=== PATIENT | female | born 1930 | race Caucasian/White ===

== ENCOUNTER 2017-01-10 03:18 | Inpatient (IN) | payer OTHER, BC ==
[2017-01-10] MEDS ORDERED: ACETAMINOPHEN 325 MG TAB PO PRN (09:04)
--- NOTE | 2017-01-10 10:06 | GHP ---
DATE OF ADMISSION: 01/10/2017 CHIEF COMPLAINT: Fever and confusion. HISTORY OF PRESENT ILLNESS: This is an 86-year-old woman who initially presented to [facility] in the middle of the night last night. She had a significant workup there, was hypoten sive at one point, thus transferred to this facility for ICU level care. History is obtained through the patient as well as her daughter. She had a total knee replacement a bout 3 weeks ago. This was relatively uneventful. She is on Coumadin for atrial fibrillation, was off Coumadin. Her daughter does not believe that she was bridged with Lovenox. She is currently th erapeutic and has been for a few weeks. She has been feeling poorly for about 5 days. She saw her primary care physician 2 days prior to presentation who gave her a liter of IV fluid. That made her feel slightly better. She called her daughter last night, saying that she was "very sick". She co mplains mostly of some neck pain as well as a headache that has been present for about 1 day. She a lso had a fever at home. She was quite confused when her daughter first arrived at her house. She was also very globally weak. Seems as though she has been doing somewhat poorly since her knee surg shruthi, she has been ambulating. She has lost about 20 pounds since the surgery, however. At [facility], she had multiple tests run. She had a CBC which showed a white count of 15,000; head CT scan, which was negative for any acute abnormality; CT angio of the head, which was also negative. She had a CT of her abdomen and pelvis which was negative. Given her neck pain, a lumbar puncture w as performed which showed xanthochromia, some red blood cells but no significant white blood cells. Arthrodesis of her knee showed also red blood cells but no significant white blood cells or crystal s. She had an ESR which was 22. She was hypotensive, she was given 2 L of fluid to which her blood pressure responded. A central line was placed. She was given vancomycin as well as cefepime, then transferred to [facility]. She tells me she feels slightly better. She is still quite somnolent. PAST MEDICAL/SURGICAL HISTORY: 1. Chronic right-sided abdominal pain status post significant workup with no etiology identified. 2. Fibromyalgia on prednisone and Plaquenil. 3. Chronic steroid use of 5 mg of prednisone a day for about 30 years. 4. Osteoarthritis. 5. Diabetes on metformin. 6. Atrial fibrillation on chronic anticoagulation. PAST SURGICAL HISTORY: Bilateral TKA, the last about 3 weeks ago. MEDICATIONS: Please see medication reconciliation. ALLERGIES: Penicillin, codeine, sulfa and opiates. FAMILY HISTORY: Parents are . SOCIAL HISTORY: She lives 2 doors down from her daughter. She does not drink or smoke. REVIEW OF SYSTEMS: A 10-point review of systems is conducted and is negative except per HPI. PHYSICAL EXAM: VITAL SIGNS: Blood pressure is 130/38, heart rate is 79, respiration rate 23, satur ating 100% on 3 L, temperature 36.8. GENERAL: The patient is a pleasant female who appears quite s omnolent, lying in bed, also quite uncomfortable. HEENT: Shows her to be normocephalic, atraumatic . CARDIOVASCULAR: Regular rate and rhythm. No murmurs, rubs, or gallops. PULMONARY: Lungs clear to auscultation bilaterally. ABDOMINAL: Soft. She is tender to palpation in the right upper and lower quadrant. She has no mass or hepatosplenomegaly appreciated. SKIN: Shows no rash. : Excharlie m shows a Kirkpatrick in place. NEUROLOGIC: Shows her to be alert and oriented x3. She is somnolent. S he is moving all extremities. She has a nonfocal exam. PSYCHIATRIC: Shows normal mood and affect. EXTREMITIES: Her right lower extremity with 2 wounds, both surgical. She has mild darkening arou nd the inferior aspect of her right TKA incision, not warm, not significantly erythematous. She has a 2nd wound which is apparently intraoperative in the lower sanchez with no purulence or surrounding e rythema. LABS: As above. DATA: Chart thoroughly reviewed. Other data per HPI. IMPRESSION AND PLAN: This is an 86-year-old female who is transferred from [facility] for systemic infl ammatory response syndrome with unclear source. 1. Systemic inflammatory response syndrome: She has had significant workup at [facility] including lum bar puncture, knee arthrocentesis, CT abdomen and pelvis. She had blood cultures, urine cultures, C SF cultures, as well as synovial fluid culture sent. Those are pending. She was covered with vanco mycin and cefepime. I am also not finding any clear source. She did have xanthochromia in her lumb ar puncture though she had recently had an epidural. It would not be unreasonable to repeat a head CT scan at some point to further investigate. Given how poorly she looks, I will repeat all of her labs right now. I think it is reasonable to continue to cover her with vancomycin as well as Invanz (she has an allergy to penicillins). We will follow her cultures and see if any clear infection id entifies itself. 2. Chronic abdominal pain: She has had a very significant workup. Will not continue looking for e tiologies at this point. 3. Hypotension: Does not seem to be septic shock at this point. She has responded very well. Adr enal insufficiency is a consideration. She currently has a normal blood pressure with a systolic of 130. I will continue fluids, not give her stress dose steroids, follow very closely in the ICU. S he has a central line in place. 4. Recent right-sided total knee arthroplasty: I am not seeing any clear operative complications. She did also have a lower extremity Doppler which was negative 2 days ago. Does not appear to be i nfected clinically, but will follow synovial cultures. 5. Head and neck pain: She had xanthochromia on her lumbar puncture; however, she had recently had an epidural. Glucose was actually elevated on her CSF. No protein was sent apparently. Her red b lood cell count was 1270 with 3 whites. This was tube #1. 6. She had a negative flu test as well. 7. Code status is full. 8. VTE risk is low. She is therapeutically anticoagulated. /[id number]/MODL
[2017-01-10] MEDS: ERTAPENEM 1 GM in NS 100 ML IV SCH (10:14)
[2017-01-10 10:22] LABS: % IMMATURE GRANULYOCYTES 0.3 % (0.0-1.1); ABSOLUTE IMMATURE GRANULOCYTES 0.05 10^3/uL (0.00-0.10); ADD DIFF? NO; ADD MORPH? NO; ADD SCAN? NO; ATYPICAL LYMPHOCYTE FLAG 0 (0-99); FRAGMENT RBC FLAG 0 (0-99); HEMOGLOBIN 9.9 g/dL (12.6-16.3); LEFT SHIFT FLG 0 (0-99); LIPEMIA HEMOLYSIS FLAG 80 (0-99); MEAN CELL HEMOGLOBIN 28.9 pg (27.9-34.1); MEAN CELL HEMOGLOBIN CONCENTR. 30.9 g/dL (32.4-36.7); MEAN CELL VOLUME 93.6 fL (81.5-99.8); MEAN PLATELET VOLUME 9.7 fL (8.7-11.7); PLATELET CLUMPS FLAG 0 (0-99); PLATELET COUNT 168 10^3/uL (150-400); RED BLOOD CELL COUNT 3.42 10^6/uL (4.18-5.33)
[2017-01-10 10:44] LABS: ALANINE AMINOTRANSFERASE 23 IU/L (9-52); ALBUMIN 2.6 g/dL (3.5-5.0); ALKALINE PHOSPHATASE 45 IU/L (38-126); ANION GAP 4 mEq/L (8-16); ASPARTATE AMINOTRANSFERASE 17 IU/L (14-46); BILIRUBIN,TOTAL 0.7 mg/dL (0.1-1.4); CALCIUM 7.5 mg/dL (8.5-10.4); CARBON DIOXIDE 24 mEq/l (22-31); CHLORIDE 106 mEq/L (97-110); CREATININE 0.9 mg/dL (0.6-1.0); GLOMERULAR FILTRATION RATE 59; GLUCOSE 108 mg/dL (70-100); MAGNESIUM 1.6 mg/dL (1.6-2.3); SODIUM 134 mEq/L (134-144); TOTAL PROTEIN 5.3 g/dL (6.3-8.2)
[2017-01-10 10:55] LABS: TROPONIN I < 0.012 ng/mL (0-0.034)
[2017-01-10] MEDS: ONDANSETRON 4 MG/2 ML VIAL IVP PRN (11:00)
[2017-01-10 11:01] LABS: INR 3.38 (0.83-1.16); PROTIME(PATIENT) 34.7 SEC (12.0-15.0)
--- NOTE | 2017-01-10 11:23 | CPEKG ---
Heart Rate: 79 RR Interval: 759 P-R Interval: 176 QRSD Interval: 146 QT Interval: 400 QTC Interval: 459 P [place]: 0 QRS [place]: 268 T Wave [place]: 80 EKG Severity - ABNORMAL ECG - EKG Impression: VENTRICULAR-PACED URITHJane Electronically Signed By: Omar Castañeda 10-Jan-2017 12:16:39
[2017-01-10] MEDS: KETOROLAC 15 MG/1 ML SDV IVP PRN (11:35)
--- NOTE | 2017-01-10 14:16 | WOCRNPDOC ---
ALEX Advanced Assessment Note - Skin Integrity Problem, Advanced Assess Right Anterior Lower Leg Laceration Dressing Type: Mepilex Border (placed prior to admission) Dressing Description: Clean/Dry, Intact Exudate Amount: None Exudate Characteristic(s): None Integumentary Issue Intervention: Visualized Under Dressing Aundrea Wound Swelling: None Wound Bed Constitution: Healed Site Odor: None Site Measurement - Head-to-Toe Length X Width X Depth (cm): 3 cm l x 0.3 x 0 Skin Integrity Problem Comment: Site of laceration is closed, with scaly, new epithelium/scar tissue. Allevyn dressing is appropriately placed by chief of staff to protect site undernerath SCDs. Right Buttock Pressure Injury Dressing Type: Allevyn Life Dressing Description: Not Intact, Soiled Exudate Amount: None Integumentary Issue Intervention: Dressing Changed, Dressing Initialed & Dated Aundrea Wound Tissue: Erythema, Non-blanching, Thin Aundrea Wound Swelling: None Wound Bed Constitution: Smooth Tissue Wound Edges: Epithelizing, Attached Site Odor: None Site Measurement - Head-to-Toe Length X Width X Depth (cm): 2.3 x 0.3 x 0 ( ridged) Pressure Injury Present on Admit: Yes (per report of daughter) Skin Integrity Problem Comment: Evidence of a resurfacing pressure ulcer of undetermined, possibly full-thickness depth previous to present admission and assessment. Daughter reports that injury has been present and under care since "when she (patient) was at rehab." Site is covered w/new epithelium, with slightly rough texture, possibly tending toward cheloid scarring. Protected w/ skin prep and Allevyn sacrum dressing; JOSHUA Sidhu assisting.
[2017-01-10] MEDS ORDERED: DICLOFENAC SODIUM TP PRN (15:47)
[2017-01-10] MEDS ORDERED: SENNOSIDES/DOCUSATE SODIUM TAB PO PRN (15:47)
[2017-01-10] MEDS ORDERED: POLYETHYLENE GLYCOL 3350 17 GM PKT PO PRN (15:47)
[2017-01-10] MEDS: WARFARIN SODIUM 4 MG TAB PO SCH (16:12)
--- NOTE | 2017-01-10 20:02 | GCON ---
CRITICAL CARE CONSULT DATE OF CONSULTATION: 01/10/2017 HPI: The patient is an 86-year-old female, who underwent a right total knee arthroplasty in late [facility] or early December. According to records, the surgery itself was fairly uncomplicated. She tavares d issues with pain control, but that was managed easily, and she was discharged to [facility]. While she was there, she had sort of chronic complaints about dizziness and overall weakne ss and presented to the emergency room at [facility], where her surgery was done, on 01/08. At that [facility], she was afebrile. Her blood pressure was normal. They were not sure what was bothering her, but she did have a white blood cell count of 12.6 at the time. She was sent back to the rehab, returne d the following day feeling worse, and this time was found have a fever of 102.0 and a white blood c ell count now of 14.9. Her blood pressure was in the 70s after 2 L of fluid. This normalized after an additional fluid challenge. An arthrocentesis was performed by the emergency physician there, d id not show evidence of infection, just some blood. A lumbar puncture was also performed that showe d some xanthochromia, but the patient was on Coumadin at that time and only 3 white cells were ident ified, and these were primarily lymphocytes. Because of the blood pressure issue, she was transferr ed to [facility]. Subsequently, blood cultures were found to have gram-positive joon ci in pairs in 2/2 bottles. While here at [facility], her blood pressure has been somewhat labile, though never a systolic less than 90, and her lactate was normal. She has had very little intervention for blood pressure since she has been here. REVIEW OF SYSTEMS: Negative. PAST MEDICAL HISTORY: Includes: 1. Chronic abdominal pain of uncertain etiology. She has had an extensive workup for this. 2. Fibromyalgia. 3. Chronic prednisone therapy for that problem. 4. Degenerative joint disease. 5. Diabetes. 6. Atrial fibrillation. 7. Chronic anticoagulation. 8. Depression. 9. Hyperlipidemia. 10. Pneumonia in 2016. 11. Remote history of melanoma. 12. Episodes of ventricular tachycardia requiring a pacer placement. 13. Some notes suggest chronic kidney disease. Her creatinine is normal now. She may have had acu te kidney disease previously. 14. Anemia. PAST SURGICAL HISTORY: Includes: 1. Total knee arthroplasty most recently on the right and remotely on the left. 2. Laparoscopic cholecystectomy. 3. Appendectomy. 4. Multiple back surgeries, the last one in 2011. 5. Hysterectomy. 6. Cataract extractions. 7. Bladder suspension. 8. Remote tubal ligation. 9. Ankle fracture. 10. Pacemaker placement in the past. SOCIAL HISTORY: She is a nonsmoker. Rare alcohol. No IV drug use. FAMILY HISTORY: Noncontributory at this time. CURRENT MEDICATIONS: Include Tylenol, ertapenem, Plaquenil, Toradol, Zofran, oxycodone, MiraLAX, pr ednisone 5 mg daily, Senokot, vancomycin, and warfarin. ALLERGIES: Include penicillin and codeine and sulfa medications. PHYSICAL EXAMINATION: VITAL SIGNS: She has been afebrile here at [facility]. Blood pressure at the [place] t was 97/33, currently 118/96 without intervention with a heart rate of 79, 100% paced, oxygen satur ation 99% on 3 L with a respiratory rate of 19. GENERAL: She is a very pleasant woman, alert and o riented x3, and able to speak in full sentences without using accessory muscles for breathing. HEEN T: She complained of a hoarse voice, but I do not appreciate any stridor. Pupils equally round, re act to light. Nonicteric and noninjected. Mucous membranes are moist without erythema or exudate. NECK: Supple without adenopathy or jugular vein distention, and there were no abrasions on her nec k where she was having some tenderness and headache that she thought was a migraine earlier today. RESPIRATORY: Breath sounds were clear to auscultation bilaterally without wheezes or rales. HEART: Regular rate and rhythm without obvious murmurs. ABDOMEN: Soft, nontender, nondistended, without hepatosplenomegaly. EXTREMITIES: Showed mild edema distally on the right. I believe she has had an ultrasound ruling out DVT. She has an area of about 1 x 2 or 3 cm erythema at the distal portion of her incision that is warm to touch but not swollen or excessively tender. She has another lesio n at her distal right lower extremity where she says she was inadvertently cut with a scissors on a dressing change. That wound looks clean and dry without evidence of infection. There is no cyanosi s or clubbing on either leg. Her left leg looks perfectly fine. NEUROLOGICAL: Nonfocal, including cranial nerves and deep tendon reflexes. OBJECTIVE DATA: Includes a white count of 12.6 on 01/08 and 14.9 and 01/09 prior to transfer to [facility] . Here her white count was 14.8, hematocrit is 32, platelets of 168. INR was 3.38. Sodium was 134 , potassium 4.0, chloride 108, bicarb 24, anion gap was only 4, BUN 16, creatinine 0.9. LFTs were n ormal. Lipase was 155. TSH was 0.74. She had a head CT and abdominal and pelvic CT scan that were normal. I have already cited the blood cultures as well as a joint aspirate which showed 1750 whit e cells, 70% neutrophils, but no organisms on Gram stain. CSF was benign as described as above. ASSESSMENT/PLAN: 1. Severe sepsis with hypotension but no end-organ damage. She appeared to respond well to fluid. She is on appropriate antibiotics at this time. I suspect that the joint is probably clean and wit hout an infection. The source may be cellulitis at the incision site. We will keep track of this a nd monitor for any progress. I think it is appropriate to keep her in the intensive care unit [facility] her blood pressure at least overnight to see that this stays normal. 2. Chronic prednisone. She is relatively stable at this time. She may need stress dose steroids f or this problem. This certainly increases her risk for infection as described above. 3. Atrial fibrillation. This has been obviated by the 100% pacemaker. 4. Diabetes. Certainly, efforts are being made to keep her blood sugar under good control at this time. 5. She is otherwise stable. A total of about 35 minutes of critical care time was required for this patient. /[id number]/MODL
[2017-01-10] MEDS: VANCOMYCIN 750 MG in D5W 150 ML IV SCH (23:57)
[2017-01-11] MEDS: KETOROLAC 15 MG/1 ML SDV IVP PRN ×2 (00:28→17:27)
[2017-01-11] MEDS: ONDANSETRON 4 MG/2 ML VIAL IVP PRN (00:28)
[2017-01-11 05:06] LABS: % IMMATURE GRANULYOCYTES 0.2 % (0.0-1.1); ABSOLUTE IMMATURE GRANULOCYTES 0.02 10^3/uL (0.00-0.10); ADD DIFF? NO; ADD MORPH? NO; ADD SCAN? NO; ATYPICAL LYMPHOCYTE FLAG 0 (0-99); FRAGMENT RBC FLAG 0 (0-99); HEMATOCRIT 29.9 % (38.0-47.0); HEMOGLOBIN 9.1 g/dL (12.6-16.3); LEFT SHIFT FLG 0 (0-99); LIPEMIA HEMOLYSIS FLAG 80 (0-99); MEAN CELL HEMOGLOBIN 28.3 pg (27.9-34.1); MEAN CELL HEMOGLOBIN CONCENTR. 30.4 g/dL (32.4-36.7); MEAN CELL VOLUME 92.9 fL (81.5-99.8); PLATELET CLUMPS FLAG 10 (0-99); PLATELET COUNT 150 10^3/uL (150-400); RED BLOOD CELL COUNT 3.22 10^6/uL (4.18-5.33); RED CELL DISTRIBUTION WIDTH 14.2 % (11.5-15.2)
[2017-01-11 05:26] LABS: ALANINE AMINOTRANSFERASE 29 IU/L (9-52); ALBUMIN 2.4 g/dL (3.5-5.0); ALKALINE PHOSPHATASE 42 IU/L (38-126); ANION GAP 5 mEq/L (8-16); ASPARTATE AMINOTRANSFERASE 15 IU/L (14-46); BILIRUBIN,TOTAL 0.5 mg/dL (0.1-1.4); CARBON DIOXIDE 24 mEq/l (22-31); CHLORIDE 108 mEq/L (97-110); CREATININE 0.8 mg/dL (0.6-1.0); GLOMERULAR FILTRATION RATE > 60; GLUCOSE 72 mg/dL (70-100); POTASSIUM 3.9 mEq/L (3.5-5.2); SODIUM 137 mEq/L (134-144); TOTAL PROTEIN 5.1 g/dL (6.3-8.2)
[2017-01-11 05:30] LABS: INR 4.06 (0.83-1.16); PROTIME(PATIENT) 40.2 SEC (12.0-15.0)
[2017-01-11] MEDS: predniSONE 5 MG TAB PO SCH (09:49)
[2017-01-11] MEDS: HYDROXYCHLOROQUINE SULFATE 200 MG TAB PO SCH (09:49)
[2017-01-11] MEDS: ERTAPENEM 1 GM in NS 100 ML IV SCH (09:49)
[2017-01-11] MEDS: ONDANSETRON DISINTEGRATING 4 MG TAB PO PRN ×2 (10:46→15:22)
--- NOTE | 2017-01-11 11:31 | HOSPPROG ---
Hospitalist Progress Note Assessment/Plan: # GPC pairs bacteremia (Aroldoa) - maybe enterococcus - cont vanc - repeat BCx - check echo - ID consult # recent R TKA - synovial fluid NGTD from [facility] # LOZA/neck pain - CSF NGTD # a-fib, elevated INR - hold warfarin today - rate controlled # arthritis - plaquenil, prednisone # chronic steroid use - no evidence of AI ## high risk with bacteremia, age Subjective: Blood cultures from [facility] grew gram positives; feels much better overall today Objective: Vital Signs Temp Pulse Resp BP Pulse Ox 36.3 C 79 18 118/59 L 93 01/11/17 11:06 01/11/17 11:06 01/11/17 11:06 01/11/17 11:06 01/11/17 11:06 Laboratory Results 01/11/17 04:35 01/11/17 04:35 01/10/17 01/11/17 01/12/17 05:59 05:59 05:59 Intake Total 2738 Output Total 1200 50 Balance 1538 -50 PT 40.2 SEC (12.0-15.0) H 01/11/17 04:35 INR 4.06 (0.83-1.16) H 01/11/17 04:35 Vitals reviewed Pleasant, no acute distress Regular rate and rhythm, no murmurs rubs or gallops No respiratory distress, lungs clear to auscultation bilaterally, no wheezes or rales Abdomen soft nontender, nondistended, no hepatosplenomegaly Slight lightening of erythema around the incision ICD10 Worksheet Patient Problems: Problems Problem Status Onset Pre-syncope Acute Abdominal pain Acute Dysphagia Acute SOB (shortness of breath) on exertion Acute Diabetes Acute Intra-abdominal hematoma Acute Chronic atrial fibrillation Acute
--- NOTE | 2017-01-11 14:36 | ECHO ---
[id number] + + [address] : : [place] [id number] : : [phone] + + Adult Echocardiographic Report + + :Name: MOI OLIVARES DStudy Date: 01/11/2017 11:22 AM : : Hospital Admission Number: [id number] Lo cation: 373: :: 1930 Gender: Female Height: 60 in : :Age: 86 yrs Race: WH Weight: 12 5 lb : :Reason For Study: Bacteremia : : BSA: 1.5 m eters2 : :History: Pacer/Ablations : + + MMode/2D Measurements \T\ Calculations IVSd: 0.76 cm LVIDd: 4.9 cm EDV(Teich): Ao root diam: LVPWd: 1.0 cm 111.2 ml 2.9 cm LA dimension: 4.0 cm LVLd ap4: 6.0 cm SV(MOD-sp4): EDV(MOD-sp4): 20.0 ml 33.0 ml LVLs ap4: 5.6 cm ESV(MOD-sp4): 13.0 ml EF(MOD-sp4): 60.6 % Normal Measurement Values: + + :LVIDd (3.5-5.7cm) IVSd (0.6-1.1cm) LVPWd (0.6-1.1cm) Aortic Root (2.0-3.7cm)Left Atrium (1.5-4.0cm): :LV Vol(d) (76-115ml) LV Vol(s) (29-48ml) Ejec Fraction (50-65%)PV Teodoro (0.6- 1.2m/s) TV Teodoro (0.4-1.0m/s) : :MV E Teodoro (0.8-1.0m/s)MV A Teodoro (0.3-1.0m/s)LVOT Teodoro (0.7-1.2m/s) Asc Ao Teodoro ( 0.9-1.8m/s) : + + Doppler Measurements \T\ Calculations MV E max teodoro: Ao mean PG: AI max teodoro: TR max teodoro: 110.1 cm/sec 2.4 mmHg 342.9 cm/sec 386.7 cm/sec Ao V2 mean: AI max P.0 mmHg TR max P.7 cm/sec AI dec slope: 59.8 mmHg Ao V2 VTI: 232.5 cm/sec2 RAP systole: 18.4 cm AI P1/2t: 432.0 msec 10.0 mmHg RVSP(TR): 69.8 mmHg Left Ventricle The left ventricle is normal in size. There is mild concentric left ventricular hypertrophy. Left ventricular systolic function is normal. There is Doppler evidence for diastolic dysfunction. Ejection Fraction = 60-65%. No regional wall motion abnormalities noted. Right Ventricle The right ventricle is normal in size and function. There is a pacemaker lead in the right ventricle. Atria The left atrium is moderate to severely dilated. The right atrium is mild to moderately dilated. The interatrial septum is intact with no evidence for an atrial septal defect. Mitral Valve There is mild mitral annular calcification. There is no evidence of mitral valve prolapse. There is no mitral valve stenosis. There is mild to moderate mitral regurgitation. Tricuspid Valve Normal tricuspid valve. There is moderate to severe tricuspid regurgitation. Right ventricular systolic pressure is 71mmHg. There is Doppler evidence for moderate pulmonary hypertension. Aortic Valve The aortic valve is trileaflet. The aortic valve opens well. There is no aortic stenosis. Mild aortic regurgitation. Pulmonic Valve The pulmonic valve is normal in structure and function. There is no pulmonic valvular regurgitation. Great Vessels The aortic root is normal size. Pericardium/Pleural There is no pericardial effusion. Left pleural effusion. Conclusion A complete two-dimensional transthoracic echocardiogram was performed (2D, M-mode, Doppler and color flow Doppler). Left ventricular systolic function is normal. There is Doppler evidence for diastolic dysfunction. There is mild concentric left ventricular hypertrophy. Ejection Fraction = 60-65%. There is a pacemaker lead in the right ventricle. The left atrium is moderate to severely dilated. The right atrium is mild to moderately dilated. There is mild mitral annular calcification. There is mild to moderate mitral regurgitation. There is moderate to severe tricuspid regurgitation. Right ventricular systolic pressure is 71mmHg. There is Doppler evidence for moderate pulmonary hypertension. Mild aortic regurgitation. Left pleural effusion. Final Reading Physician: Jemima Cole signed on 01/11/2017 02:34 PM Ordering Physician: Stephen Mayorga Performed By: Olivia Ireland RDCS
[2017-01-11] MEDS: NS 1,000 ML IV SCH (15:22)
--- NOTE | 2017-01-11 20:41 | GCON ---
DATE OF CONSULTATION: 01/11/2017 REFERRING PHYSICIAN: Stephen Mayorga MD REASON FOR CONSULTATION: Bacteremia and possible total knee arthroplasty infection. HISTORY OF PRESENT ILLNESS: Patient is a an 86-year-old female, who underwent right total knee arthroplasty on 12/15/2016, by Dr. Coronel The patient notes that she has been feeling poorly since around [place], primarily related to poor appetite and 10-15 pounds of weight loss. This has been associated with chronic dizziness. Postoperatively, the patient has not had any increase in knee pain or erythema or drainage. Prior to admission, the patient was complaining of headache and neck pain. She did not complain of any fever or any chills; but at the time of her initial evaluation at [facility] emergency department, was febrile to 102. She had associated confusion and global weakness. Evaluation at [facility] emergency department, revealed a leukocytosis with negative CT scan of the brain, including CT angiography. CT of the abdomen and pelvis was also reportedly negative. The patient underwent lumbar puncture, which showed 3 white blood cells, with 1270 red blood cells, and glucose of 141, . Blood cultures were obtained, and both sets obtained from of [facility] are now growing gram-positive cocci in pairs and chains. The patient does note that she has had chronic diarrhea and lower abdominal pain for a long period of time. She did not have cough, shortness of breath, sore throat, nausea, or vomiting. She has not had any urinary tract symptoms. She did have a brief rehabilitation stay after her knee replacement. No noticeable skin rash. The patient was also noted to be hypotensive at the time of presentation. Intensive care unit availability was not present at [facility], and the patient was then transferred to [facility]. She has been treated empirically with vancomycin, cefepime, and subsequently ertapenem. Initially, her knee incision was noted to be erythematous at the inferior margin. Based on the above findings, I am now asked to assist in her ongoing management. The patient did undergo arthrocentesis at [facility], which showed 38,300 red blood cells with 1750 white blood cells with 70% neutrophils. Gram stain was negative and culture is no growth to date. Given the above findings, I am now asked to assist in her ongoing management. PAST MEDICAL HISTORY: Chronic abdominal pain and diarrhea with undefined etiology, fibromyalgia, chronic steroid use with 5 mg of prednisone daily, osteoarthritis, diabetes, atrial fibrillation post ablation x4. PAST SURGICAL HISTORY: Bilateral total knee arthroplasty with the right knee performed 3 weeks ago; prior pacemaker placement. CURRENT MEDICATIONS: Vancomycin 750 mg IV daily; Coumadin 4 mg p.o. Wednesday, Wednesday, Wednesday, Wednesday, , Wednesday; prednisone 5 mg p.o. daily; Voltaren gel; Plaquenil 200 mg p.o. daily. ALLERGIES: Penicillin associated a rash; patient lists sulfonamides as an allergy; but she does this because she is taking warfarin and because of the known drug interaction. SOCIAL HISTORY: Patient does not smoke or drink alcohol. No recent travel. Pet dog at home. FAMILY HISTORY: Congestive heart failure, leukemia. REVIEW OF SYSTEMS: Outside of that noted in HPI, remainder of 10-system review is unremarkable. PHYSICAL EXAMINATION: VITAL SIGNS: Temperature 38.9 at [facility]. Temperature current 36.3, heart rate 79, respiratory rate 18, blood pressure 118/59, oxygen saturation 93% on room air. GENERAL: Patient is well-nourished, well-developed , in no acute distress. She appears nontoxic. HEENT: There is no scleral icterus, conjunctival injection, conjunctival petechiae. Oropharynx clear without lesions. Dentition is in fair repair. There is no nasal discharge. There is no tenderness over the frontal, maxillary, or mastoid area. NECK: Supple without lymphadenopathy. Mild tenderness over cervical spine to palpation. CHEST: Clear to auscultation bilaterally without adventitious sounds. Respiratory effort is normal. CARDIOVASCULAR: Regular rate and rhythm without murmurs, gallops, or rubs. Pacemaker is present in the left upper chest with no erythema or tenderness. ABDOMEN: Soft, nontender, nondistended. There is no palpable organomegaly. Bowel sounds are present. MUSCULOSKELETAL: The right lower extremity shows well-healed surgical incision ; there is some desquamation of the skin at the inferior margin with slightly hyperpigmented hue, but no erythema. There is minimal effusion present. There is no irritability with range of motion of the knee joint, and mild overlying warmth is present. Left knee shows well-healed total knee arthroplasty incision. SKIN: There are no stigmata of endocarditis. There is a faint pink hue to the sacrum, but no skin breakdown. The skin is warm and dry to touch. NEUROLOGIC: Patient is alert and interacts appropriately with the examiner. Cranial nerves 2-12 are grossly intact. Sensation is grossly intact. Muscle tone and bulk are normal. LYMPHATICS: There are no cervical, supraclavicular or inguinal nodes palpable. LABORATORY DATA: White blood cell count at time of admission 14.8, currently 8.7, hematocrit 29.9, platelets 150, neutrophils 82%. Serum creatinine 0.8, bilirubin 0.5. AST 15, ALT 29, alkaline phosphatase 42, bilirubin 0.5, albumin 2.4. INR is 4.1. Blood cultures x2 sets drawn at [facility] are showing gram- positive cocci in pairs; I reviewed this with the microbiology lab at [facility], and growth is currently suggestive of Enterococcus. Identification susceptibility will be available tomorrow. The synovial fluid gram stain was negative, and culture showing no growth to date. IMPRESSION: Sepsis due to gram-positive bacteremia: Early growth of cultures is most consistent with Enterococcus. Beta-hemolytic streptococci would also be in the differential diagnosis, and further identification in the laboratory will be necessary. Considerations for etiologies would include total knee arthroplasty infection versus GI or source if Enterococcus (chronic GI symptoms but no urinary symptoms and UA at [facility] was unrevealing). She does have some resolving skin changes at the inferior margin of her surgical incision , but no other findings to suggest septic arthritis other than some white blood cells, present in her synovial fluid. Followup of her synovial fluid cultures will help further define if the prosthesis is affected. Endocarditis a consideration, although no murmur noted on exam; she does have indwelling pacemaker. RECOMMENDATIONS: 1. Agree with empiric vancomycin, pending identification of gram-positive cocci in pairs. 2. Follow up synovial fluid cultures as available. 3. Will review CT scan of abdomen and pelvis that was done [facility]. 4. Agree with repeat blood cultures to assess for clearing of bacteremia. 5. Follow clinical response to above measures. 6. Agree with echocardiogram. Thank you for this consultation. We will continue to follow the patient with you. /[id number]/MODL MTDD
[2017-01-11] MEDS: oxyCODONE IR 5 MG TAB PO PRN (21:53)
[2017-01-12] MEDS: NS 1,000 ML IV SCH ×2 (01:00→12:25)
[2017-01-12] MEDS: VANCOMYCIN 750 MG in D5W 150 ML IV SCH (01:04)
[2017-01-12] MEDS ORDERED: traZODone 50 MG TAB PO PRN ×2 (01:20→13:26)
[2017-01-12] MEDS: oxyCODONE IR 5 MG TAB PO PRN (05:52)
[2017-01-12 06:26] LABS: % IMMATURE GRANULYOCYTES 0.3 % (0.0-1.1); ABSOLUTE IMMATURE GRANULOCYTES 0.02 10^3/uL (0.00-0.10); ADD DIFF? NO; ADD MORPH? NO; ADD SCAN? NO; ATYPICAL LYMPHOCYTE FLAG 0 (0-99); FRAGMENT RBC FLAG 0 (0-99); HEMATOCRIT 28.7 % (38.0-47.0); HEMOGLOBIN 8.6 g/dL (12.6-16.3); LEFT SHIFT FLG 0 (0-99); LIPEMIA HEMOLYSIS FLAG 80 (0-99); MEAN CELL VOLUME 93.5 fL (81.5-99.8); PLATELET CLUMPS FLAG 0 (0-99); PLATELET COUNT 139 10^3/uL (150-400); RED BLOOD CELL COUNT 3.07 10^6/uL (4.18-5.33); RED CELL DISTRIBUTION WIDTH 14.1 % (11.5-15.2)
[2017-01-12 06:33] LABS: INR 3.67 (0.83-1.16); PROTIME(PATIENT) 37.1 SEC (12.0-15.0)
[2017-01-12 06:39] LABS: ANION GAP 5 mEq/L (8-16); CALCIUM 7.3 mg/dL (8.5-10.4); CARBON DIOXIDE 22 mEq/l (22-31); CHLORIDE 110 mEq/L (97-110); CREATININE 0.7 mg/dL (0.6-1.0); GLOMERULAR FILTRATION RATE > 60; GLUCOSE 84 mg/dL (70-100); POTASSIUM 4.1 mEq/L (3.5-5.2); SODIUM 137 mEq/L (134-144)
[2017-01-12] MEDS: HYDROXYCHLOROQUINE SULFATE 200 MG TAB PO SCH (09:46)
[2017-01-12] MEDS: predniSONE 5 MG TAB PO SCH (09:47)
--- NOTE | 2017-01-12 13:36 | PCMIDPN ---
Assessment/Plan: Assessment/Plan: 1. Enterococcus fecalis bacteremia/sepsis: - Unclear source at present. -Blood cx are positive from [facility] from 01/09/17 (2 of 2 sets). f/u blood cx from here 01/11/17 pending -Sensitivities reviewed from [facility]: pansensitive to Amp (donya <2), gent (<500), and vanco (2) -CT ab/pelvis reviewed from [facility]: subcentimeter hypodensities in both liver and kidney (too small to characterize). possibly cyst vs hemangiomas in liver. No nephrolithiasis noted. Cholecystectomy, Appendectomy, Hysterectomy. Colon diverticulosis without diverticulitis. -TTE: no obvious vegetation noted. May need to consider LADI especially if no other source is identified. -Synovial fluid from [facility] reviewed: wbc 1750, rbc 38,000, neutraphils 70%, GS : no org, culture so far ngtd -CSF from [facility] reviewed: wbc 3, rbc 1270, lymph 100, glucose 141, protein not done, GS: no org, CX: ngtd - CT head from [facility]: no acute abnormality. paranasal sinus/mastoids clear. - INfluenza from [facility]: negative. -If ongoing neck pain, may need Ct to further evaluate - Continue with Vanco for now. 2. REcent right TKA: - synovial fluid unremarkable -GS/cultures with ngtd 3. PCN allergy: - Meds VAnco 750mg daily- Subjective: Afebrile. STates she feels better than few days ago. Denies sob. INtermittent abd pain but actually better than previously. No acute bouts of diarrhea although she has history of fluctating bowel movments. Denies dysuria. Kirkpatrick in place at present. Denies headaches. c/o mild left neck pain along SCM. denies sore throat. Denies ear pain. Had some knee pain yesterday. no redness over pacer Objective: Vital Signs Temp Pulse Resp BP Pulse Ox 36.4 C 79 18 123/63 H 98 01/12/17 11:22 01/12/17 11:22 01/12/17 11:22 01/12/17 11:22 01/12/17 11:22 Laboratory Results 01/12/17 05:25 01/12/17 05:25 01/11/17 01/12/17 01/13/17 05:59 05:59 05:59 Intake Total 2738 1450 Output Total 1200 1000 350 Balance 1538 450 -350 - Physical Exam General Appearance: alert, no apparent distress Respiratory: lungs clear Neck: other (mild tenderness along left sternocleidomastoid muscle. no erythema. no induration. ) Cardiac/Chest: regular rate, rhythm, other (no redness over pacer) Extremities: swelling (mild around knee. incision site intact. mild pigmentation changes at lower end of incision site. no drainage. mild warmth.) Abdomen: normal bowel sounds, soft, other (intermittent tender on right side, without guarding or rebound.), No distended Skin: No rash - Time Spent With Patient Time Spent with Patient: greater than 35 minutes (Reviewed results with patient , reviewed lab/culture/imaging/other studies from [facility]) Time Spent with Patient: Greater than 35 minutes spent on this patients care, greater than 50% of time spent counseling, educating, and coordinating care regarding the above mentioned plan. ICD10 Worksheet Patient Problems: Problems Problem Status Onset Abdominal pain Acute Chronic atrial fibrillation Acute Diabetes Acute Dysphagia Acute Intra-abdominal hematoma Acute Pre-syncope Acute SOB (shortness of breath) on exertion Acute
[2017-01-12] MEDS ORDERED: FUROSEMIDE 20 MG/2 ML VIAL IVP ONE (14:10)
--- NOTE | 2017-01-12 14:30 | HOSPPROG ---
Hospitalist Progress Note Assessment/Plan: # GPC pairs bacteremia ([facility]) - enterococcus faecalis - concern for cellulitis around her recently replaced knee - cont vanc - f/u repeat BCx - ID consult # recent R TKA - synovial fluid NGTD from [facility] - f/u synovial fluid culture taken at [place] # volume overload - 1 dose of Lasix IV # urinary retention - dc xiao # dizziness - CTH neg # LOZA/neck pain - CSF NGTD # a-fib, elevated INR - hold warfarin again today - rate controlled # arthritis - plaquenil, prednisone # chronic steroid use - no evidence of AI ## high risk with bacteremia, age Subjective: c/o dizziness Objective: Vital Signs Temp Pulse Resp BP Pulse Ox 36.4 C 79 18 123/63 H 98 01/12/17 11:22 01/12/17 11:22 01/12/17 11:22 01/12/17 11:22 01/12/17 11:22 Laboratory Results 01/12/17 05:25 01/12/17 05:25 01/11/17 01/12/17 01/13/17 05:59 05:59 05:59 Intake Total 2738 1450 Output Total 1200 1000 350 Balance 1538 450 -350 PT 37.1 SEC (12.0-15.0) H 01/12/17 05:25 INR 3.67 (0.83-1.16) H 01/12/17 05:25 Vitals reviewed Ple[place], no acute distress Regular rate and rhythm, no murmurs rubs or gallops No respiratory distress, lungs clear to auscultation bilaterally, no wheezes or rales Abdomen soft nontender, nondistended, no hepatosplenomegaly 1+ lower extremity edema bilaterally to her ankles ICD10 Worksheet Patient Problems: Problems Problem Status Onset Pre-syncope Acute Abdominal pain Acute Dysphagia Acute SOB (shortness of breath) on exertion Acute Diabetes Acute Intra-abdominal hematoma Acute Chronic atrial fibrillation Acute
[2017-01-12] MEDS: MECLIZINE HCL 12.5 MG TAB PO PRN (16:45)
[2017-01-12] MEDS: METOPROLOL TARTRATE 25 MG TAB PO SCH (22:10)
[2017-01-13] MEDS: VANCOMYCIN 750 MG in D5W 150 ML IV SCH (00:55)
[2017-01-13] MEDS: oxyCODONE IR 5 MG TAB PO PRN ×2 (05:40→09:15)
[2017-01-13 05:42] LABS: % IMMATURE GRANULYOCYTES 0.5 % (0.0-1.1); ABSOLUTE IMMATURE GRANULOCYTES 0.04 10^3/uL (0.00-0.10); ADD DIFF? NO; ADD MORPH? NO; ADD SCAN? NO; ATYPICAL LYMPHOCYTE FLAG 10 (0-99); FRAGMENT RBC FLAG 0 (0-99); HEMATOCRIT 28.7 % (38.0-47.0); HEMOGLOBIN 8.8 g/dL (12.6-16.3); LEFT SHIFT FLG 0 (0-99); LIPEMIA HEMOLYSIS FLAG 80 (0-99); MEAN CELL HEMOGLOBIN 28.5 pg (27.9-34.1); MEAN CELL HEMOGLOBIN CONCENTR. 30.7 g/dL (32.4-36.7); MEAN CELL VOLUME 92.9 fL (81.5-99.8); MEAN PLATELET VOLUME 9.6 fL (8.7-11.7); PLATELET CLUMPS FLAG 0 (0-99); PLATELET COUNT 152 10^3/uL (150-400); RED BLOOD CELL COUNT 3.09 10^6/uL (4.18-5.33); RED CELL DISTRIBUTION WIDTH 13.9 % (11.5-15.2)
[2017-01-13 05:57] LABS: INR 2.08 (0.83-1.16); PROTIME(PATIENT) 23.5 SEC (12.0-15.0)
[2017-01-13 06:12] LABS: ALANINE AMINOTRANSFERASE 23 IU/L (9-52); ALBUMIN 2.7 g/dL (3.5-5.0); ALKALINE PHOSPHATASE 47 IU/L (38-126); ANION GAP 5 mEq/L (8-16); ASPARTATE AMINOTRANSFERASE 17 IU/L (14-46); BILIRUBIN,TOTAL 0.8 mg/dL (0.1-1.4); CARBON DIOXIDE 25 mEq/l (22-31); CHLORIDE 109 mEq/L (97-110); CREATININE 0.8 mg/dL (0.6-1.0); GLOMERULAR FILTRATION RATE > 60; GLUCOSE 95 mg/dL (70-100); SODIUM 139 mEq/L (134-144); TOTAL PROTEIN 5.6 g/dL (6.3-8.2)
[2017-01-13] MEDS: HYDROXYCHLOROQUINE SULFATE 200 MG TAB PO SCH ×2 (09:11→09:13)
[2017-01-13] MEDS: predniSONE 5 MG TAB PO SCH ×2 (09:11→09:13)
[2017-01-13] MEDS: METOPROLOL TARTRATE 25 MG TAB PO SCH ×2 (09:12→09:13)
[2017-01-13] MEDS ORDERED: MELATONIN 3 MG TAB PO PRN (13:41)
--- NOTE | 2017-01-13 14:02 | HOSPPROG ---
Hospitalist Progress Note Assessment/Plan: # enterococcus faecalis bacteremia - possible source cellulitis - cont vanc - f/u repeat BCx - ID consult # recent R TKA - - f/u synovial fluid culture taken at [place] - reviewed today, no growth today - I think there was some cellulitis at the distal end of her incision, does not appear to be a joint infection at this point # volume overload - better today # urinary retention - xiao dc'd # dizziness - CTH neg # LOZA/neck pain - CSF NGTD # a-fib, elevated INR - restart warfarin - rate controlled # arthritis - plaquenil, prednisone # chronic steroid use - no evidence of AI ## Subjective: Awoke in the middle of the night feeling confused Objective: Vital Signs Temp Pulse Resp BP Pulse Ox 36.7 C 79 15 118/62 93 01/13/17 11:31 01/13/17 11:31 01/13/17 11:31 01/13/17 11:31 01/13/17 11:31 Laboratory Results 01/13/17 05:35 01/13/17 05:35 01/12/17 01/13/17 01/14/17 05:59 05:59 05:59 Intake Total 1450 575 Output Total 1000 3150 200 Balance 450 -2575 -200 PT 23.5 SEC (12.0-15.0) H D 01/13/17 05:35 INR 2.08 (0.83-1.16) H 01/13/17 05:35 Comfortable, no acute distress No respiratory distress Right IJ central lying in place with no erythema Decreased bilateral ankle edema - Time Spent With Patient Time Spent with Patient: greater than 35 minutes Time Spent with Patient: Greater than 35 minutes spent on this patients care, greater than 50% of time spent counseling, educating, and coordinating care regarding the above mentioned plan. ICD10 Worksheet Patient Problems: Problems Problem Status Onset Pre-syncope Acute Abdominal pain Acute Dysphagia Acute SOB (shortness of breath) on exertion Acute Diabetes Acute Intra-abdominal hematoma Acute Chronic atrial fibrillation Acute
[2017-01-13] MEDS: MECLIZINE HCL 12.5 MG TAB PO PRN ×2 (14:39→19:06)
[2017-01-13] MEDS: WARFARIN SODIUM 4 MG TAB PO SCH (17:45)
--- NOTE | 2017-01-13 18:31 | WOCRNPDOC ---
ALEX Advanced Assessment Note - Skin Integrity Problem, Advanced Assess Right Anterior Lower Leg Laceration Dressing Type: Allevyn Life Wound Bed Constitution: Healed Right Buttock Pressure Injury Dressing Type: Green CleanvSnipi Life Integumentary Issue Intervention: Visualized Under Dressing Site Measurement - Head-to-Toe Length X Width X Depth (cm): 0.2x0.2x0.2 Skin Integrity Problem Comment: Small opening in an area of scar tissue where a previously open pressure wound existed. Coccyx Pressure Injury Dressing Type: [employer] Life Integumentary Issue Intervention: Visualized Under Dressing Aundrea Wound Tissue: Blanching, Erythema Site Measurement - Head-to-Toe Length X Width X Depth (cm): 1x1x0 Pressure Injury Stage: Stage 1 Pressure Injury Present on Admit: No Skin Integrity Problem Comment: Area with friable skin covering stage 1 pressure injury.
--- NOTE | 2017-01-13 18:54 | PCMIDPN ---
Assessment/Plan: Assessment/Plan: * Enterococcus faecalis bacteremia: Potentially due to postoperative cellulitis of right knee incision; negative synovial fluid and lack of irritability argue against TKA involvement. Continue vancomycin given underlying penicillin allergy. Plan 2 weeks of antibiotics post negative blood cultures. 01/13/17 18:51 Subjective: Patient feels clinically improved. Less neck pain which she notes is chronic. Intermittent dizziness described does not unsteady feeling is also present. No significant knee pain. Objective: Vital Signs Temp Pulse Resp BP Pulse Ox 36.7 C 83 13 115/47 L 95 01/13/17 16:10 01/13/17 16:10 01/13/17 16:10 01/13/17 16:10 01/13/17 16:10 Laboratory Results 01/13/17 05:35 01/13/17 05:35 01/12/17 01/13/17 01/14/17 05:59 05:59 05:59 Intake Total 1392 142 8061 Output Total 1000 3150 200 Balance 450 -5482 845 Vancomycin # 3 Blood cultures 01/11/2017 no growth Blood cultures from [facility] with growth of Enterococcus faecalis Synovial fluid cultures no growth Transthoracic echo findings noted - Physical Exam General Appearance: alert, no apparent distress EENT: pharynx normal, No conjunctival petechiae Respiratory: lungs clear, No respiratory distress Neck: other (No tenderness laterally or over cervical spine) Cardiac/Chest: regular rate, rhythm, No systolic murmur Extremities: inflammation (Previously present erythema over distal margin of knee incision resolving with some desquamation of skin; no pain with range of motion of knee) Abdomen: non-tender, No distended Skin: No embolic lesions ICD10 Worksheet Patient Problems: Problems Problem Status Onset Abdominal pain Acute Chronic atrial fibrillation Acute Diabetes Acute Dysphagia Acute Intra-abdominal hematoma Acute Pre-syncope Acute SOB (shortness of breath) on exertion Acute
[2017-01-14] MEDS: VANCOMYCIN 750 MG in D5W 150 ML IV SCH (00:59)
[2017-01-14 06:49] LABS: INR 1.44 (0.83-1.16); PROTIME(PATIENT) 17.5 SEC (12.0-15.0)
[2017-01-14 06:51] LABS: APTT 34.1 SEC (23.0-38.0)
[2017-01-14] MEDS: MECLIZINE HCL 12.5 MG TAB PO PRN (08:46)
[2017-01-14] MEDS: METOPROLOL TARTRATE 25 MG TAB PO SCH ×2 (08:47→20:41)
[2017-01-14] MEDS: HYDROXYCHLOROQUINE SULFATE 200 MG TAB PO SCH (08:49)
[2017-01-14] MEDS: predniSONE 5 MG TAB PO SCH (08:50)
[2017-01-14] MEDS: oxyCODONE IR 5 MG TAB PO PRN (08:56)
--- NOTE | 2017-01-14 13:48 | HOSPPROG ---
Hospitalist Progress Note Assessment/Plan: DIAGNOSES: # enterococcus faecalis bacteremia - possible source cellulitis - cont vanc - f/u repeat BCx - ID consult # recent R TKA - the # volume overload - better today # urinary retention - xiao dc'd # dizziness - CTH neg # LOZA/neck pain - CSF NGTD # a-fib, elevated INR - restart warfarin - rate controlled # arthritis - plaquenil, prednisone # chronic steroid use - no evidence of AI Overall she is showing some signs of clinical improvement. I reviewed her course in detail with Dr. Shon Martinez today. I would like to get her central lumen IV catheter out due to infection and clot risk. At this point has her repeat blood cultures here are negative we can proceed with placing PICC catheter is that she can use for the remainder of her antibiotic therapy. She may be able to leave tomorrow or the next day if she continues to improve. PLANS: -DC central IV catheter PICC catheter placement Continue current antibiotics Discharge possibly 1-2 days if her progress continues SUBJECTIVE: no chills or sweats or pain OBJECTIVE Vitals reviewed: No fever otherwise stable Exam: alert oriented skin warm dry color ok resps not labored lungs clear BSs heart regular abd soft nondistended nontender, bowel sounds present limbs warm, no edema; her knee incision now looks fairly normal. There is some expected postoperative swelling but no other swelling at this time and she is not very tender iv site ok Objective: Vital Signs Temp Pulse Resp BP Pulse Ox 36.8 C 79 18 138/70 H 91 L 01/14/17 08:00 01/14/17 08:00 01/14/17 08:00 01/14/17 08:00 01/14/17 08:00 Laboratory Results 01/13/17 05:35 01/13/17 05:35 01/13/17 01/14/17 01/15/17 06:59 06:59 06:59 Intake Total 575 1045 Output Total 3150 200 Balance -2575 845 PT 17.5 SEC (12.0-15.0) H 01/14/17 06:30 INR 1.44 (0.83-1.16) H 01/14/17 06:30 ICD10 Worksheet Patient Problems: Problems Problem Status Onset Abdominal pain Acute Chronic atrial fibrillation Acute Diabetes Acute Dysphagia Acute Intra-abdominal hematoma Acute Pre-syncope Acute SOB (shortness of breath) on exertion Acute
[2017-01-14] MEDS ORDERED: ALTEPLASE 2 MG VIAL IVP PRN (14:00)
--- NOTE | 2017-01-14 14:55 | PCMIDPN ---
Assessment/Plan: Assessment/Plan: * Enterococcus faecalis bacteremia: Potentially due to postoperative cellulitis of right knee incision which appears to be resolving. Synovial culture is negative and no clinical findings to suggest septic arthritis. Continue vancomycin given underlying penicillin allergy. Repeat trough prior to next dose. Plan 2 weeks of antibiotics post negative blood cultures. PICC line placement and discharge planning. 01/14/17 14:52 Subjective: Patient feels better. No significant knee pain. Objective: Vital Signs Temp Pulse Resp BP Pulse Ox 36.8 C 79 18 138/70 H 91 L 01/14/17 08:00 01/14/17 08:00 01/14/17 08:00 01/14/17 08:00 01/14/17 08:00 Laboratory Results 01/13/17 05:35 01/13/17 05:35 01/13/17 01/14/17 01/15/17 05:59 05:59 05:59 Intake Total 575 1045 Output Total 3150 200 Balance -2575 845 Vancomycin #[address] [facility] negative Blood cultures 01/11/17 no growth - Physical Exam General Appearance: alert, no apparent distress EENT: No scleral icterus, No conjunctival petechiae Cardiac/Chest: irregularly irregular Extremities: inflammation (left knee erythema inferior margin of incision resolved with desquamating skin; incision intact; minimal effusion; no irritability with range of motion) Abdomen: non-tender, No distended ICD10 Worksheet Patient Problems: Problems Problem Status Onset Abdominal pain Acute Chronic atrial fibrillation Acute Diabetes Acute Dysphagia Acute Intra-abdominal hematoma Acute Pre-syncope Acute SOB (shortness of breath) on exertion Acute
--- NOTE | 2017-01-14 15:00 | PDIAF ---
- Diagnosis Diagnosis: E. faecalis bacteremia Code Status: Full Code - Medication Management Discharge Medications: Medications to Continue on Transfer Calcium Carbonate [Tums 500MG (*)] 500 mg PO DAILY 05/01/14 [Last Taken 08:00] Multivitamins [Multivitamin (*)] 1 tab PO DAILY 05/01/14 [Last Taken 01/09/17 08 :00] Diclofenac Sodium [Voltaren Gel (*)] 1 guy TP DAILY PRN 02/19/16 [Last Taken Unknown] Metoprolol Tartrate [Lopressor 25 mg (*)] 12.5 mg PO BID 02/19/16 [Last Taken 08:00] Acetaminophen [Tylenol 325mg (*)] 650 mg PO Q4 PRN #0 tab 02/25/16 [Last Taken Unknown] oxyCODONE IR [Oxycodone Ir (*)] 5 - 10 mg PO Q4 PRN #0 tab 02/25/16 [Last Taken Unknown] Hydroxychloroquine Sulfate [Plaquenil 200 mg (*)] 200 mg PO DAILY 01/10/17 [ Last Taken 01/09/17 08:00] Ondansetron Odt [Zofran Odt 4 mg (*)] 4 mg PO Q4 PRN 01/10/17 [Last Taken Unknown] Polyethylene Glycol 3350 [Miralax 17 gm (*)] 17 gm PO DAILY PRN 01/10/17 [Last Taken Unknown] Sennosides/Docusate Sodium [Senokot-S] 1 - 2 tab PO BID PRN 01/10/17 [Last Taken Unknown] Warfarin Sodium [Coumadin 4MG (*)] 4 mg PO SUMOTUWETHSA@16 01/10/17 [Last Taken 01/07/17] Warfarin Sodium [Coumadin 4MG (*)] 6 mg PO FR@16 01/10/17 [Last Taken 01/08/17] metFORMIN SR [Glucophage XR 500 mg (*)] 500 mg PO DAILY 01/10/17 [Last Taken 08:00] predniSONE 5 mg PO DAILY 01/10/17 [Last Taken 01/09/17 08:00] Pattern Keeper Antibiotics: Vancomycin 750 mg IV q24 Pattern Keeper Antibiotic Stop Date: 01/25/17 Discharge Medications: Refer to the Discharge Home Medication list for PRN reason. PICC Care - Routine: Yes - Orders Services needed: Home Group Home Care Face to Face: I certify that this patient was under my care and that I had the required [id number] encounter meeting the encounter requirements on the discharge day. My findings support the fact that the patient is homebound as defined in CMS Chapter 7 Medicare Benefits Manual 30.1.1, The condition of the patient is such that there exists a normal inability to leave home and consequently, leaving home would require a considerable and taxing effort. - Labs/Radiology CBC Date: 01/18/17 (weekly q wednesday) CMP Date: 01/18/17 (weekly q wednesday) Creatinine Date: 01/21/17 Vanco Trough Date and Time: 01/18/17, 01/21/17 Call or Fax Lab and Imaging Results to: Dr. Martinez, - Follow Up Care Current Providers and Referrals: Moni Vogt NP [Non Staff and Non MD] - Shon Martinez MD [Medical Doctor] - 01/20/17 11:00 am
[2017-01-14] MEDS: WARFARIN SODIUM 4 MG TAB PO SCH (18:05)
[2017-01-14] MEDS: ONDANSETRON DISINTEGRATING 4 MG TAB PO PRN (21:34)
[2017-01-15] MEDS: oxyCODONE IR 5 MG TAB PO PRN ×2 (00:19→11:37)
[2017-01-15 05:29] LABS: INR 1.41 (0.83-1.16); PROTIME(PATIENT) 17.2 SEC (12.0-15.0)
[2017-01-15] MEDS ORDERED: VANCOMYCIN 750 MG in D5W 150 ML IV SCH (06:00)
[2017-01-15 07:56] VITALS: BP 131/69; PULSE 79; RESP 18; TEMP 98.4; O2SAT 91
[2017-01-15] MEDS: HYDROXYCHLOROQUINE SULFATE 200 MG TAB PO SCH (08:30)
[2017-01-15] MEDS: predniSONE 5 MG TAB PO SCH (08:30)
[2017-01-15] MEDS: METOPROLOL TARTRATE 25 MG TAB PO SCH (08:30)
--- NOTE | 2017-01-15 10:26 | PDIAF ---
- Diagnosis Diagnosis: E. faecalis bacteremia Code Status: Full Code - Medication Management Discharge Medications: Medications to Continue on Transfer Calcium Carbonate [Tums 500MG (*)] 500 mg PO DAILY 05/01/14 [Last Taken 08:00] Multivitamins [Multivitamin (*)] 1 tab PO DAILY 05/01/14 [Last Taken 01/09/17 08 :00] Diclofenac Sodium [Voltaren Gel (*)] 1 guy TP DAILY PRN 02/19/16 [Last Taken Unknown] Metoprolol Tartrate [Lopressor 25 mg (*)] 12.5 mg PO BID 02/19/16 [Last Taken 08:00] Acetaminophen [Tylenol 325mg (*)] 650 mg PO Q4 PRN #0 tab 02/25/16 [Last Taken Unknown] oxyCODONE IR [Oxycodone Ir (*)] 5 - 10 mg PO Q4 PRN #0 tab 02/25/16 [Last Taken Unknown] Hydroxychloroquine Sulfate [Plaquenil 200 mg (*)] 200 mg PO DAILY 01/10/17 [ Last Taken 01/09/17 08:00] Polyethylene Glycol 3350 [Miralax 17 gm (*)] 17 gm PO DAILY PRN 01/10/17 [Last Taken Unknown] Sennosides/Docusate Sodium [Senokot-S] 1 - 2 tab PO BID PRN 01/10/17 [Last Taken Unknown] Warfarin Sodium [Coumadin 4MG (*)] 4 mg PO SUMOTUWETHSA@16 01/10/17 [Last Taken 01/07/17] Warfarin Sodium [Coumadin 4MG (*)] 6 mg PO FR@16 01/10/17 [Last Taken 01/08/17] metFORMIN SR [Glucophage XR 500 mg (*)] 500 mg PO DAILY 01/10/17 [Last Taken 08:00] predniSONE 5 mg PO DAILY 01/10/17 [Last Taken 01/09/17 08:00] Meclizine HCl [Meclizine HCl 12.5 mg (*)] 12.5 mg PO BID PRN #0 tab 01/15/17 [ Last Taken Unknown] Vancomycin [Vancomycin (*)] 750 mg IV Q24H #0 vial 01/15/17 [Last Taken Unknown] Canvas Worker Apprentice Antibiotics: Vancomycin 750 mg IV q24 Alf Antibiotic Stop Date: 01/25/17 Discharge Medications: Refer to the Discharge Home Medication list for PRN reason. PICC Care - Routine: Yes - Orders Services needed: Home Halfway Care Face to Face: I certify that this patient was under my care and that I had the required [id number] encounter meeting the encounter requirements on the discharge day. My findings support the fact that the patient is homebound as defined in CMS Chapter 7 Medicare Benefits Manual 30.1.1, The condition of the patient is such that there exists a normal inability to leave home and consequently, leaving home would require a considerable and taxing effort. Diet Recommendation: no restrictions on diet Diet Texture: Regular Texture Diet - Labs/Radiology CBC Date: 01/18/17 (weekly q wednesday) CMP Date: 01/18/17 (weekly q wednesday) Creatinine Date: 01/21/17 Vanco Trough Date and Time: 01/18/17, 01/21/17 Call or Fax Lab and Imaging Results to: Dr. Martinez, - Follow Up Care Current Providers and Referrals: Moni Vogt NP [Non Staff and Non MD] - Shon Martinez MD [Medical Doctor] - 01/20/17 11:00 am
--- NOTE | 2017-01-15 12:51 | PDIAF ---
- Diagnosis Diagnosis: E. faecalis bacteremia Code Status: Full Code - Medication Management Discharge Medications: Medications to Continue on Transfer Calcium Carbonate [Tums 500MG (*)] 500 mg PO DAILY 05/01/14 [Last Taken 08:00] Multivitamins [Multivitamin (*)] 1 tab PO DAILY 05/01/14 [Last Taken 01/09/17 08 :00] Diclofenac Sodium [Voltaren Gel (*)] 1 guy TP DAILY PRN 02/19/16 [Last Taken Unknown] Metoprolol Tartrate [Lopressor 25 mg (*)] 12.5 mg PO BID 02/19/16 [Last Taken 08:00] Acetaminophen [Tylenol 325mg (*)] 650 mg PO Q4 PRN #0 tab 02/25/16 [Last Taken Unknown] oxyCODONE IR [Oxycodone Ir (*)] 5 - 10 mg PO Q4 PRN #0 tab 02/25/16 [Last Taken Unknown] Hydroxychloroquine Sulfate [Plaquenil 200 mg (*)] 200 mg PO DAILY 01/10/17 [ Last Taken 01/09/17 08:00] Polyethylene Glycol 3350 [Miralax 17 gm (*)] 17 gm PO DAILY PRN 01/10/17 [Last Taken Unknown] Sennosides/Docusate Sodium [Senokot-S] 1 - 2 tab PO BID PRN 01/10/17 [Last Taken Unknown] Warfarin Sodium [Coumadin 4MG (*)] 4 mg PO SUMOTUWETHSA@16 01/10/17 [Last Taken 01/07/17] Warfarin Sodium [Coumadin 4MG (*)] 6 mg PO FR@16 01/10/17 [Last Taken 01/08/17] metFORMIN SR [Glucophage XR 500 mg (*)] 500 mg PO DAILY 01/10/17 [Last Taken 08:00] predniSONE 5 mg PO DAILY 01/10/17 [Last Taken 01/09/17 08:00] Meclizine HCl [Meclizine HCl 12.5 mg (*)] 12.5 mg PO BID PRN #0 tab 01/15/17 [ Last Taken Unknown] Vancomycin [Vancomycin (*)] 750 mg IV Q24H #0 vial 01/15/17 [Last Taken Unknown] Pcb Design Engineer Antibiotics: Vancomycin 750 mg IV q24 Detention Antibiotic Stop Date: 01/25/17 Discharge Medications: Refer to the Discharge Home Medication list for PRN reason. PICC Care - Routine: Yes - Orders Services needed: Home Care, Registered Nurse, Physical Therapy, Occupational Therapy Home Care Face to Face: I certify that this patient was under my care and that I had the required [id number] encounter meeting the encounter requirements on the discharge day. My findings support the fact that the patient is homebound as defined in CMS Chapter 7 Medicare Benefits Manual 30.1.1, The condition of the patient is such that there exists a normal inability to leave home and consequently, leaving home would require a considerable and taxing effort. Diet Recommendation: no restrictions on diet Diet Texture: Regular Texture Diet - Labs/Radiology CBC Date: 01/18/17 (weekly q wednesday) CMP Date: 01/18/17 (weekly q wednesday) Creatinine Date: 01/21/17 Vanco Trough Date and Time: 01/18/17, 01/21/17 Call or Fax Lab and Imaging Results to: Dr. Martinez, - Follow Up Care Current Providers and Referrals: Moni Vogt NP [Non Staff and Non MD] - Shon Martinez MD [Medical Doctor] - 01/20/17 11:00 am
--- NOTE | 2017-01-15 14:39 | PDDCSUM ---
Discharge Summary Discharge Summary: DISCHARGE DIAGNOSES: - ACUTE SEPSIS -ENTEROCOCCUS FAECALIS BACTEREMIA SUSPECTED SOURCE IS CELLULITIS IN THE LEG AT SURGICAL WOUND - RECENT TOTAL KNEE ARTHROPLASTY DONE ELSEWHERE -CHRONIC VERTIGO AT HER BASELINE, WITH SOME GAIT INSTABILITY -ATRIAL FIBRILLATION RATE CONTROLLED -ARTHRITIS CONSULTANTS: Dr. Shon Martinez infectious disease PROCEDURES: CT scan of head with no evidence of an acute abnormality causing vertigo HOSPITAL COURSE SUMMARY: This patient who had recently had total knee arthroplasty done elsewhere. She was sent here with the finding of Enterococcus faecalis bacteremia diagnosed at the [facility]. She was sent to this hospital because at the time of the ER evaluation she was felt to have acute sepsis and would be needing ICU care. upon arrival here the patient had received antibiotics and IV fluids starting at the other ER and but had improvement in her vital signs and would not really see significant signs of sepsis here. She was continued on antibiotics for her Enterococcus faecalis infection and responded quite well. At this point she is getting vancomycin every 24 hours and will need to continue for another 10 days of antibiotic therapy. A PICC line has been placed as repeat blood cultures here have been negative and she will get her antibiotics home with home nursing care. Her wounds actually now look excellent there is no evidence of any abscess and her cellulitis was resolving. There has not been any evidence of joint space her prosthesis infection or other deep process. She is ambulating in the hallway well, eating well, no respiratory issues or cardiac issues. She is felt stable for discharge to home. She has ongoing home health care and home health aides and these will be in place in [facility] at this time. Also we have arranged home physical occupational therapy as well as home IV antibiotics and PICC line care for her. MEDICATION CHANGES: Addition of vancomycin 24 hour dosing schedule FOLLOW-UP PLAN: appointment Dr. Shon Martinez on January 20 at 11:00 a.m. Greater than 35 minutes bedside and care coordination time today
[2017-01-15] MEDS ORDERED: WARFARIN SODIUM 3 MG TAB PO SCH (16:00)
[2017-01-15] MEDS ORDERED: WARFARIN SODIUM 4 MG TAB PO SCH (16:00)
== END 2017-01-15 16:21 | disposition home health service (06) | DRG 862 ==
LOC: F2N 03:40 → F3E 01-11 10:59
PROVIDERS: ADMIT Internal Medicine; ATTEND Internal Medicine
PROC: 02HV33Z Insertion of Infusion Device into Superior Vena Cava, Percutaneous Approach (ICD-10-PCS; principal; 2017-01-14)
DX: T81.4XXA Infection following a procedure, initial encounter (principal); A41.81 Sepsis due to Enterococcus; L03.115 Cellulitis of right lower limb; I95.9 Hypotension, unspecified; H81.10 Benign paroxysmal vertigo, unspecified ear; I48.91 Unspecified atrial fibrillation; R26.9 Unspecified abnormalities of gait and mobility; M79.7 Fibromyalgia; E11.9 Type 2 diabetes mellitus without complications; Z96.651 Presence of right artificial knee joint; Z98.890 Other specified postprocedural states; Z79.52 Long term (current) use of systemic steroids; Z79.01 Long term (current) use of anticoagulants
CPT/HCPCS: 97116-GP; 97161-GP; 97165-GO; 97530-GO; 97535-GO; C1751; G8978-GP-CK; G8979-GP-CI; G8987-GO-CK; G8988-GO-CI; G8989-GO-CI; J1335; J1885; J2405; J3370